=== PATIENT | male | born 1945 | race Caucasian/White ===

== ENCOUNTER 2024-02-29 18:47 | Observation (INO) | payer MEDICARE, OTHER ==
--- NOTE | 2024-02-29 19:36 | ERPHSYRPT ---
- History of Present Illness Time Seen by Provider: 02/29/24 19:33 Source: patient Exam Limitations: no limitations Physician History: Patient is an 78-year-old male with history of hypertension presents to the emergency department for evaluation and treatment of strokelike symptoms. Patient states symptoms started last night with dizziness. However patient did not seek medical attention. Approximately 1 hour prior to arrival patient experienced a disassociation sensation of his left upper extremity per patient. Patient experienced transient weakness. Symptoms lasted several minutes before resolution. Patient no longer feels weak however he is experiencing a mild residual dizziness. No associated chest pain or shortness of breath. No nausea vomiting or diaphoresis. Symptoms when present are moderate in intensity. Patient denies a history of the same. He voices no other complaints or concerns at this time. Portions of this note were created with voice recognition technology. There may be grammatical, spelling, punctuation or sound alike errors Timing/Duration: yesterday Severity: moderate Modifying Factors: Improves With: nothing Associated Symptoms: denies symptoms Allergies/Adverse Reactions: No Known Drug Allergies Allergy (Unverified 02/29/24 19:55) Home Medications: Cephalexin Mh 500 mg [Keflex 500 mg] 1 tab PO QID 02/29/24 [History] Losartan/Hydrochlorothiazide [Losartan-Hctz 100-25 mg Tab] 1 tab PO DAILY 02/29/24 [History] Metoprolol Succinate 50 mg [Toprol Xl 50 MG] 1 tab PO HS 02/29/24 [History] PANTOPRAZOLE 40 mg Tablet [Protonix 40MG Tablet] 1 tab PO DAILY 02/29/24 [History] Pravastatin Sodium 20 mg PO HS 02/29/24 [History] - Review of Systems Constitutional: No Symptoms, No Fever, No Chills Eyes: No Symptoms Ears, Nose, & Throat: No Symptoms Respiratory: No Symptoms, No Cough, No Dyspnea Cardiac: No Symptoms, No Chest Pain, No Edema, No Syncope Abdominal/Gastrointestinal: No Symptoms, No Abdominal Pain, No Nausea, No Vomiting, No Diarrhea Genitourinary Symptoms: No Symptoms, No Dysuria Musculoskeletal: No Symptoms, No Back Pain, No Neck Pain Skin: No Symptoms, No Rash Neurological: No Symptoms, No Dizziness, No Focal Weakness, No Sensory Changes Psychological: No Symptoms Endocrine: No Symptoms Hematologic/Lymphatic: No Symptoms Immunological/Allergic: No Symptoms All Other Systems: Reviewed and Negative - Nursing Vital Signs Nursing Vital Signs: Initial Vital Signs Temperature 98.4 F 02/29/24 19:26 Pulse Rate 58 L 02/29/24 19:26 Respiratory Rate 20 02/29/24 19:26 Blood Pressure 139/57 02/29/24 19:26 O2 Sat by Pulse Oximetry 97 02/29/24 19:26 Pain Scale Pain Intensity 0 - Physical Exam General Appearance: no apparent distress, alert Eye Exam: PERRL/EOMI, eyes nml inspection Ears, Nose, Throat Exam: normal ENT inspection, TMs normal, pharynx normal, moist mucous membranes Neck Exam: normal inspection, non-tender, supple, full range of motion Respiratory Exam: normal breath sounds, lungs clear, airway intact, No respiratory distress Cardiovascular Exam: regular rate/rhythm, normal heart sounds, normal peripheral pulses Gastrointestinal/Abdomen Exam: soft, normal bowel sounds, No tenderness, No mass Back Exam: normal inspection, normal range of motion, No CVA tenderness, No vertebral tenderness Extremity Exam: normal inspection, normal range of motion, pelvis stable Neurologic Exam: alert, oriented x 3, cooperative, normal mood/affect, nml cerebellar function, nml station & gait, sensation nml, other (No focal or later alizing symptoms), No motor deficits Skin Exam: normal color, warm, dry, No rash Lymphatic Exam: No adenopathy SpO2 Interpretation: normal SpO2: 97 O2 Delivery: Room Air - Course Nursing assessment & vital signs reviewed: Yes EKG Interpreted by Me: RATE (57), Sinus Rhythm, NORMAL AXIS, NORMAL INTERVALS - CT Exams Head CT Interpretation: Tele-radiologist Report (No comps. Atrophy. No acute findings) Ordered Tests: Active Orders 24 hr Category Date Time Status Manager Field Services STAT Care 02/29/24 19:32 Active EKG-ER Only STAT Care 02/29/24 19:32 Active IV Insertion STAT Care 02/29/24 19:32 Active Pulse Oximetry (ED) STAT Care 02/29/24 19:32 Active HEAD WITHOUT CONTRAST [CT] Stat Exams 02/29/24 19:31 Taken CBC W DIFF Stat Lab 02/29/24 19:40 Completed CMP Stat Lab 02/29/24 19:40 Completed TROPONIN Q4H Lab 02/29/24 19:40 Completed TROPONIN Q4H Lab 02/29/24 23:45 Ordered TROPONIN Q4H Lab 03/01/24 03:45 Ordered UA W/RFX UR CULTURE Stat Lab 02/29/24 20:16 Completed Transfer Order Routine Transfer 02/29/24 Ordered Medication Summary Generic Name Dose Route Start Last Admin Trade Name Howard PRN Reason Stop Dose Admin Sodium Chloride 1,000 mls @ 75 mls/hr 02/29/24 19:45 02/29/24 19:57 Sodium Chloride 0.9% 1000 Ml IV 03/30/24 19:44 75 mls/hr .[id number] DOLORES Administration Discontinued Medications Generic Name Dose Route Start Last Admin Trade Name Freq PRN Reason Stop Dose Admin Aspirin 324 mg 02/29/24 20:32 02/29/24 20:36 Aspirin 81 Mg Tab.Chew PO 02/29/24 20:33 324 mg STAT ONE Administration Aspirin Confirm 02/29/24 20:35 Aspirin 81 Mg Tab.Chew Administered 02/29/24 20:36 Dose 324 mg .ROUTE .STK-MED ONE Lab/Rad Data: Laboratory Result Diagrams 02/29/24 19:40 02/29/24 19:40 Laboratory Results 02/29/24 02/29/24 02/29/24 Range/Units 20:16 19:40 19:40 WBC (4.23-9.07) x10^3/uL RBC (4.63-6.08) x10^6/uL Hgb (13.7-17.5) g/dL Hct (40.1-51.0) % MCV (79.0-92.2) fL MCH (25.7-32.2) pg MCHC (32.3-36.5) g/dL RDW (11.6-14.4) % Plt Count (163-337) x10^3/uL MPV (9.4-12.4) fL Gran % (34.0-67.9) % Immature Gran % (Auto) (0.001-0.429) % Nucleat RBC Rel Count (0.00-0.2) % Eos # (Auto) (0.04-0.54) x10^3/uL Immature Gran # (Auto) (0.001-0.031) x10^3u/L Absolute Lymphs (auto) (1.32-3.57) x10^3/uL Absolute Monos (auto) (0.30-0.82) x10^3/uL Absolute Nucleated RBC (0.00-0.012) x10^3u/L Lymphocytes % (21.8-53.1) % Monocytes % (5.3-12.2) % Eosinophils % (0.8-7.0) % Basophils % (0.2-1.2) % Absolute Granulocytes (1.78-5.38) x10^3/uL Basophils # (0.01-0.08) x10^3/uL Sodium 145 (135-145) mmol/L Potassium 4.3 (3.5-5.1) mmol/L Chloride 109 H (98-107) mmol/L Carbon Dioxide 27 (22-30) mmol/L Anion Gap 13.5 (5-15) MEQ/L BUN 21 H (9-20) mg/dL Creatinine 1.07 (0.66-1.25) mg/dL Estimated GFR 70.2 ML/MIN Glucose 147 H (74-106) mg/dL Calcium 9.3 (8.4-10.2) mg/dL Total Bilirubin 0.40 (0.2-1.3) mg/dL AST 22 (17-59) U/L ALT 23 (0-50) U/L Alkaline Phosphatase 84 (38-126) U/L Troponin I < 0.012 (0.000-0.033) ng/mL Serum Total Protein 7.7 (6.3-8.2) g/dL Albumin 4.4 (3.5-5.0) g/dL Urine Color Yellow (Yellow) Urine Appearance Clear (Clear) Urine pH 5.5 (4.6-8.0) Ur Specific [place] 1.015 (1.005-1.030) Urine Protein Negative (Negative) Urine Glucose (UA) Negative (Negative) mg/dL Urine Ketones Negative (Negative) Urine Blood Negative (Negative) Urine Nitrite Negative (Negative) Urine Bilirubin Negative (Negative) Urine Urobilinogen 1.0 A (0.2) mg/dL Ur Leukocyte Esterase Negative (Negative) U Hyaline Cast (Auto) NONE SEEN (0-2) /LPF Urine Microscopic RBC 0-2 (0-5) /HPF Urine Microscopic WBC 0-2 (0-5) /HPF Ur Epithelial Cells None Seen (None Seen) /HPF Urine Bacteria None Seen (None Seen) /HPF Urine Culture Reflexed NO (NO) 02/29/24 Range/Units 19:40 WBC 8.7 (4.23-9.07) x10^3/uL RBC 4.77 (4.63-6.08) x10^6/uL Hgb 14.6 (13.7-17.5) g/dL Hct 43.4 (40.1-51.0) % MCV 91.0 (79.0-92.2) fL MCH 30.6 (25.7-32.2) pg MCHC 33.6 (32.3-36.5) g/dL RDW 12.2 (11.6-14.4) % Plt Count 204 (163-337) x10^3/uL MPV 12.3 (9.4-12.4) fL Gran % 54.1 (34.0-67.9) % Immature Gran % (Auto) 0.2 (0.001-0.429) % Nucleat RBC Rel Count 0.0 (0.00-0.2) % Eos # (Auto) 0.29 (0.04-0.54) x10^3/uL Immature Gran # (Auto) 0.02 (0.001-0.031) x10^3u/L Absolute Lymphs (auto) 2.41 (1.32-3.57) x10^3/uL Absolute Monos (auto) 1.20 H (0.30-0.82) x10^3/uL Absolute Nucleated RBC 0.00 (0.00-0.012) x10^3u/L Lymphocytes % 27.7 (21.8-53.1) % Monocytes % 13.8 H (5.3-12.2) % Eosinophils % 3.3 (0.8-7.0) % Basophils % 0.9 (0.2-1.2) % Absolute Granulocytes 4.71 (1.78-5.38) x10^3/uL Basophils # 0.08 (0.01-0.08) x10^3/uL Sodium (135-145) mmol/L Potassium (3.5-5.1) mmol/L Chloride (98-107) mmol/L Carbon Dioxide (22-30) mmol/L Anion Gap (5-15) MEQ/L BUN (9-20) mg/dL Creatinine (0.66-1.25) mg/dL Estimated GFR ML/MIN Glucose (74-106) mg/dL Calcium (8.4-10.2) mg/dL Total Bilirubin (0.2-1.3) mg/dL AST (17-59) U/L ALT (0-50) U/L Alkaline Phosphatase (38-126) U/L Troponin I (0.000-0.033) ng/mL Serum Total Protein (6.3-8.2) g/dL Albumin (3.5-5.0) g/dL Urine Color (Yellow) Urine Appearance (Clear) Urine pH (4.6-8.0) Ur Specific [place] (1.005-1.030) Urine Protein (Negative) Urine Glucose (UA) (Negative) mg/dL Urine Ketones (Negative) Urine Blood (Negative) Urine Nitrite (Negative) Urine Bilirubin (Negative) Urine Urobilinogen (0.2) mg/dL Ur Leukocyte Esterase (Negative) U Hyaline Cast (Auto) (0-2) /LPF Urine Microscopic RBC (0-5) /HPF Urine Microscopic WBC (0-5) /HPF Ur Epithelial Cells (None Seen) /HPF Urine Bacteria (None Seen) /HPF Urine Culture Reflexed (NO) - Progress Progress: improved Progress Note: Case discussed with teleneurologist who advised admission. Spoke to neurologist at [address]. hospitalist [address] Baxter accepts admission at 205702/29/24 21:01 78-year-old male presents to our ED with strokelike symptoms. Symptoms had resolved prior to arrival. Physical exam nonremarkable. No focal or lateralizing symptoms. CT head negative for acute intracranial pathology. Teleneurologist consulted. Admission advised for stroke workup. Hospitalist accepted patient at 2057. Plan of care discussed with patient. Patient agrees to admission [facility] acute hospital for further evaluation and treatment. He voices no other complaints or concerns at this time. Laboratory workup essentially nonremarkable Portions of this note were created with voice recognition technology. There may be grammatical, spelling, punctuation or sound alike errors Complexity problem addressed is moderate acute complicated. No critical care time. Complexity of data reviewed and analyzed is extensive. Test ordered test reviewed results analyzed and correlated clinically with history and physical exam. Risk of complication and or risk of morbidity/mortality patient management is high. Patient requires hospitalization for further evaluation and treatment. Vital stable. Time spent to discharge patient approximately 20 minutes. Plan of care established for shared decision making. No social determinants of health present impede follow-up. Portions of this note were created with voice recognition technology. There may be grammatical, spelling, punctuation or sound alike errors 02/29/24 21:02 02/29/24 21:04 Counseled pt/family regarding: lab results, diagnosis, rad results - Departure Departure Disposition: Observation Clinical Impression: TIA (transient ischemic attack) Condition: Stable Critical Care Time: No Referrals: BRISA FERGUSNO MD [Primary Care Provider] - Follow up/PCP as directed
[2024-02-29 19:46] LABS: Absolute Neutrophil Ct (ANC) 4.71 x10^3/uL (1.78-5.38); BASOPHIL % 0.9 % (0.2-1.2); Basophil (Absolute #) 0.08 x10^3/uL (0.01-0.08); Eosinophil % 3.3 % (0.8-7.0); Eosinophil (Absolute #) 0.29 x10^3/uL (0.04-0.54); Hematocrit 43.4 % (40.1-51.0); Hemoglobin 14.6 g/dL (13.7-17.5); IMMATURE GRAN # 0.02 x10^3u/L (0.001-0.031); IMMATURE GRAN % 0.2 % (0.001-0.429); Lymphocyte (Absolute #) 2.41 x10^3/uL (1.32-3.57); Lymphocytes % 27.7 % (21.8-53.1); Mean Corpuscular Hemoglobin 30.6 pg (25.7-32.2); Mean Corpuscular Hgb Concent. 33.6 g/dL (32.3-36.5); Mean Platelet Volume 12.3 fL (9.4-12.4); Monocytes % 13.8 % (5.3-12.2); Neutrophil % 54.1 % (34.0-67.9); Platelet Count 204 x10^3/uL (163-337); Red Blood Count 4.77 x10^6/uL (4.63-6.08); Red Cell Distribution Width 12.2 % (11.6-14.4); White Blood Count 8.7 x10^3/uL (4.23-9.07)
[2024-02-29] MEDS: Sodium Chloride 0.9% 1000 ML 1,000 ML IV SCH (19:57)
[2024-02-29 20:00] LABS: ALBUMIN 4.4 g/dL (3.5-5.0); ANION GAP 13.5 MEQ/L (5-15); BILIRUBIN,TOTAL 0.4 mg/dL (0.2-1.3); Calcium 9.3 mg/dL (8.4-10.2); Creatinine 1 1.07 mg/dL (0.66-1.25); EST GLOMERULAR FILTRATION RATE 70.2 ML/MIN; Potassium 4.3 mmol/L (3.5-5.1); Total Protein 7.7 g/dL (6.3-8.2)
[2024-02-29 20:34] LABS: Appearance Clear (Clear); Bacteria None Seen /HPF (None Seen); Bilirubin Negative (Negative); Blood Negative (Negative); Epithelial Cells None Seen /HPF (None Seen); Glucose, Urine Negative (Negative); Hyaline Casts NONE SEEN /LPF (0-2); Ketones Negative (Negative); Leukocyte Esterase Negative (Negative); Nitrite Negative (Negative); Ph 5.5 (4.6-8.0); Protein,Urine Dip Negative (Negative); RBC 0-2 /HPF (0-5); Specific Gravity 1.015 (1.005-1.030); WBC 0-2 /HPF (0-5)
[2024-02-29] MEDS ORDERED: BABY ASPIRIN 81 MG CHEW ONE (20:35)
[2024-02-29] MEDS: BABY ASPIRIN 81 MG CHEW PO ONE (20:36)
[2024-02-29 20:37] LABS: ADD URINE CULTURE? NO (NO)
[2024-02-29] MEDS ORDERED: TYLENOL 325 MG PO PRN (21:19)
--- NOTE | 2024-02-29 22:26 | PCM.HP ---
History of Present Illness - Chief Complaint Chief Complaint: left arm didn't belong to me Date: 02/29/24 History of Present Illness: 78 y/o M with h/o HTN, who presents with left arm numbness/dissociation. Patient was in his usual state of health when this afternoon, suddenly felt like "my left arm didn't belong to me". He is uncertain if he truly had numbness, but noted that he could move his arm without difficulty. also noted that the left side of his mouth seemed to be drooping. He denies any other changes in sensation or motor weakness, denies diplopia, vision changes, dysarthria, aphasia, headache. Symptoms lasted about 45 minutes, resolving prior to arriving at the ED, and has not recurred. He has not had similar symptoms in the past. No recent fevers, chills, myalgias, malaise, nausea, diarrhea, chest pain, or dyspnea. He just started Keflex yesterday for a swollen lymph node in his neck. No other recent changes to medication, no recent changes in diet. 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 - Review of Systems Constitutional: No Fever, No Chills, No Lethargy, No Malaise Ears, Nose, & Throat: No Sinus Drainage, No Throat Pain, No Throat Swelling, No Painful Swallowing Respiratory: No Cough, No Short Of Breath Cardiac: No Chest Pain, No Syncope Abdominal/Gastrointestinal: No Abdominal Pain, No Nausea, No Diarrhea Genitourinary Symptoms: No Dysuria, No Frequency Musculoskeletal: Neck Pain, No Back Pain Skin: No Cellulitis, No Rash Neurological: Sensory Changes, No Dizziness, No Focal Weakness, No Headache, No Speech Changes, No Vertigo Psychological: No Memory Loss, No Mood Changes Endocrine: No Polyuria, No Polydipsia Hematologic/Lymphatic: Adenopathy (neck) Medications & Allergies Home Medications: Home Medication List Cephalexin Mh 500 mg [Keflex 500 mg] 1 tab PO QID 02/29/24 [History Confirmed 02/29/24] Losartan/Hydrochlorothiazide [Losartan-Hctz 100-25 mg Tab] 1 tab PO DAILY 02/29/24 [History Confirmed 02/29/24] Metoprolol Succinate 50 mg [Toprol Xl 50 MG] 1 tab PO HS 02/29/24 [History Confirmed 02/29/24] PANTOPRAZOLE 40 mg Tablet [Protonix 40MG Tablet] 1 tab PO DAILY 02/29/24 [History Confirmed 02/29/24] Pravastatin Sodium 20 mg PO HS 02/29/24 [History Confirmed 02/29/24] Allergies/Adverse Reactions: Allergies Allergy/AdvReac Type Severity Reaction Status Date / Time No Known Drug Allergies Allergy Unverified 02/29/24 19:55 - Past Medical History Past Medical History: Yes Neurological History: No Pertinent History ENT History: Glaucoma, Other Cardiac History: High Cholesterol, Hypertension Respiratory History: No Pertinent History Endocrine Medical History: No Pertinent History Musculoskelatal History: No Pertinent History GI Medical History: GERD History: No Pertinent History Pyscho-Social History: No Pertinent History Male Reproductive Disorders: No Pertinent History Comment: eye membrane overgrowth/retinal detachment, 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 - Past Surgical History Past Surgical History: Yes Neuro Surgical History: No Pertinent History Cardiac History: No Pertinent History Respiratory Surgery: No Pertinent History GI Surgical History: No Pertinent History Genitourinary Surgical Hx: No Pertinent History Musculskeletal Surgical Hx: Orthopedic Surgery Male Surgical History: Vasectomy Other Surgical History: left knee surgery Significant Family History: stroke (father with CVA at age 72) - Social History Smoking Status: Former smoker (pipe, quit over 30 years ago) Exposure to second hand smoke: No Alcohol: Occasionally Drug Use: none - Social Determinants of Health Will the patient participate in the screening: Yes Do you worry about a steady place to live?: No Do you have any problems with any of the following?: No known problems In the past 12 months,have you had to go without utilities?: No Have you or anyone in your house had to go without enough: No Transportation Issues: No Has anyone in your support network made you feel unsafe?: No - Physical Exam Vital Signs: Vital Signs - 24 hr Temp Pulse Resp BP BP Pulse Ox 02/29/24 21:04 97 02/29/24 21:01 61 16 135/58 97 02/29/24 20:30 55 L 14 156/62 98 02/29/24 20:00 56 L 18 140/59 98 02/29/24 19:32 98 02/29/24 19:31 59 L 24 138/66 02/29/24 19:26 98.4 F 58 L 20 139/57 97 General Appearance: no apparent distress Neurologic Exam: alert, oriented x 3, 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, No motor deficits (intact gross arm/leg strength), No facial droop, No aphasia, No dysarthria, No abnormal cerebellar tests Eye Exam: PERRL/EOMI Respiratory Exam: normal breath sounds, lungs clear, No accessory muscle use Cardiovascular Exam: normal heart sounds, No murmur, No edema Gastrointestinal/Abdomen Exam: No distention Results - Labs Lab/Micro Results: Lab Results-Last 24 Hours 02/29/24 02/29/24 02/29/24 Range/Units 19:40 19:40 19:40 WBC 8.7 (4.23-9.07) x10^3/uL RBC 4.77 (4.63-6.08) x10^6/uL Hgb 14.6 (13.7-17.5) g/dL Hct 43.4 (40.1-51.0) % MCV 91.0 (79.0-92.2) fL MCH 30.6 (25.7-32.2) pg MCHC 33.6 (32.3-36.5) g/dL RDW 12.2 (11.6-14.4) % Plt Count 204 (163-337) x10^3/uL MPV 12.3 (9.4-12.4) fL Gran % 54.1 (34.0-67.9) % Immature Gran % (Auto) 0.2 (0.001-0.429) % Nucleat RBC Rel Count 0.0 (0.00-0.2) % Eos # (Auto) 0.29 (0.04-0.54) x10^3/uL Immature Gran # (Auto) 0.02 (0.001-0.031) x10^3u/L Absolute Lymphs (auto) 2.41 (1.32-3.57) x10^3/uL Absolute Monos (auto) 1.20 H (0.30-0.82) x10^3/uL Absolute Nucleated RBC 0.00 (0.00-0.012) x10^3u/L Lymphocytes % 27.7 (21.8-53.1) % Monocytes % 13.8 H (5.3-12.2) % Eosinophils % 3.3 (0.8-7.0) % Basophils % 0.9 (0.2-1.2) % Absolute Granulocytes 4.71 (1.78-5.38) x10^3/uL Basophils # 0.08 (0.01-0.08) x10^3/uL Sodium 145 (135-145) mmol/L Potassium 4.3 (3.5-5.1) mmol/L Chloride 109 H (98-107) mmol/L Carbon Dioxide 27 (22-30) mmol/L Anion Gap 13.5 (5-15) MEQ/L BUN 21 H (9-20) mg/dL Creatinine 1.07 (0.66-1.25) mg/dL Estimated GFR 70.2 ML/MIN Glucose 147 H (74-106) mg/dL Calcium 9.3 (8.4-10.2) mg/dL Total Bilirubin 0.40 (0.2-1.3) mg/dL AST 22 (17-59) U/L ALT 23 (0-50) U/L Alkaline Phosphatase 84 (38-126) U/L Troponin I < 0.012 (0.000-0.033) ng/mL Serum Total Protein 7.7 (6.3-8.2) g/dL Albumin 4.4 (3.5-5.0) g/dL Urine Color (Yellow) Urine Appearance (Clear) Urine pH (4.6-8.0) Ur Specific [place] (1.005-1.030) Urine Protein (Negative) Urine Glucose (UA) (Negative) mg/dL Urine Ketones (Negative) Urine Blood (Negative) Urine Nitrite (Negative) Urine Bilirubin (Negative) Urine Urobilinogen (0.2) mg/dL Ur Leukocyte Esterase (Negative) U Hyaline Cast (Auto) (0-2) /LPF Urine Microscopic RBC (0-5) /HPF Urine Microscopic WBC (0-5) /HPF Ur Epithelial Cells (None Seen) /HPF Urine Bacteria (None Seen) /HPF Urine Culture Reflexed (NO) 02/29/24 Range/Units 20:16 WBC (4.23-9.07) x10^3/uL RBC (4.63-6.08) x10^6/uL Hgb (13.7-17.5) g/dL Hct (40.1-51.0) % MCV (79.0-92.2) fL MCH (25.7-32.2) pg MCHC (32.3-36.5) g/dL RDW (11.6-14.4) % Plt Count (163-337) x10^3/uL MPV (9.4-12.4) fL Gran % (34.0-67.9) % Immature Gran % (Auto) (0.001-0.429) % Nucleat RBC Rel Count (0.00-0.2) % Eos # (Auto) (0.04-0.54) x10^3/uL Immature Gran # (Auto) (0.001-0.031) x10^3u/L Absolute Lymphs (auto) (1.32-3.57) x10^3/uL Absolute Monos (auto) (0.30-0.82) x10^3/uL Absolute Nucleated RBC (0.00-0.012) x10^3u/L Lymphocytes % (21.8-53.1) % Monocytes % (5.3-12.2) % Eosinophils % (0.8-7.0) % Basophils % (0.2-1.2) % Absolute Granulocytes (1.78-5.38) x10^3/uL Basophils # (0.01-0.08) x10^3/uL Sodium (135-145) mmol/L Potassium (3.5-5.1) mmol/L Chloride (98-107) mmol/L Carbon Dioxide (22-30) mmol/L Anion Gap (5-15) MEQ/L BUN (9-20) mg/dL Creatinine (0.66-1.25) mg/dL Estimated GFR ML/MIN Glucose (74-106) mg/dL Calcium (8.4-10.2) mg/dL Total Bilirubin (0.2-1.3) mg/dL AST (17-59) U/L ALT (0-50) U/L Alkaline Phosphatase (38-126) U/L Troponin I (0.000-0.033) ng/mL Serum Total Protein (6.3-8.2) g/dL Albumin (3.5-5.0) g/dL Urine Color Yellow (Yellow) Urine Appearance Clear (Clear) Urine pH 5.5 (4.6-8.0) Ur Specific [place] 1.015 (1.005-1.030) Urine Protein Negative (Negative) Urine Glucose (UA) Negative (Negative) mg/dL Urine Ketones Negative (Negative) Urine Blood Negative (Negative) Urine Nitrite Negative (Negative) Urine Bilirubin Negative (Negative) Urine Urobilinogen 1.0 A (0.2) mg/dL Ur Leukocyte Esterase Negative (Negative) U Hyaline Cast (Auto) NONE SEEN (0-2) /LPF Urine Microscopic RBC 0-2 (0-5) /HPF Urine Microscopic WBC 0-2 (0-5) /HPF Ur Epithelial Cells None Seen (None Seen) /HPF Urine Bacteria None Seen (None Seen) /HPF Urine Culture Reflexed NO (NO) - Radiology Impressions Radiology Exams & Impressions: Radiology Procedures Category Date Time Status ECHO W/2D AND DOPPLER [US] Routine Exams 02/29/24 21:19 Ordered HEAD WITHOUT CONTRAST [CT] Stat Exams 02/29/24 19:31 Taken MRA BRAIN WITHOUT CONTRAST [MRI] Routine Exams 02/29/24 21:19 Ordered MRA NECK WITHOUT CONTRAST [MRI] Routine Exams 02/29/24 21:19 Ordered MRI BRAIN W/O CONTRAST [MRI] Routine Exams 02/29/24 21:[address] Head - per verbal report from ED physician, no acute changes Assessment/Plan (1) TIA (transient ischemic attack) Current Visit: Yes Status: Acute Assessment & Plan: 78 y/o M with h/o HTN, here with TIA. ## TIA - with transient left arm sensory changes, possibly a slight motor facial change. Symptoms resolved spontaneously in <1 hr. NIHSS 0 now. Seen by tele- neurology, recommended TIA workup. No other triggers, except possibly with this recent neck lymph node infection. No other obvious risk factors. - monitor on telemetry to evaluate for A-fib as cause - check MRI brain for evidence of stroke - check MRA head/neck to evaluate macrovascular obstructions - check TSH, lipid panel, HbA1c - echo to eval for cardioembolic source - continue home pravachol - give ASA 81 in ED ## Neck infection - currently on day 2 of 10 of course of Keflex as outpatient. Appears to be improving, no swelling noted today. - continue Keflex QID ## Hypertension - BP well-controlled currently. No need to adjust for permissive hypertension. - continue losartan-HCTZ 100/25 daily, Toprol XL 50 qHS ## GERD - controlled today - continue protonix Code status: Full code Prophylaxis: ambulatory, low DVT risk (Mcdonald score 1, IMPROVE 1) Diet: Regular Code(s): G45.9 - TRANSIENT CEREBRAL ISCHEMIC ATTACK, UNSPECIFIED Telemedicine Encounter - Telemedicine Encounter Telemedicine Encounter: The entirety of this encounter was performed via Telemedicine"
[2024-02-29] MEDS ORDERED: Toprol Xl 50 MG PO SCH (22:30)
[2024-02-29] MEDS ORDERED: Toprol Xl 50 MG PO ONE (23:33)
[2024-02-29] MEDS: Toprol Xl 50 MG PO SCH (23:38)
[2024-02-29] MEDS: NON-FORMULARY ITEM (Pravastatin Sodium [Pravastatin Sodium] 20 MG Tablet) PO SCH (23:40)
[2024-03-01 03:46] LABS: Hematocrit 39.8 % (40.1-51.0); Hemoglobin 13.3 g/dL (13.7-17.5); Mean Cell Volume 91.5 fL (79.0-92.2); Mean Corpuscular Hemoglobin 30.6 pg (25.7-32.2); Mean Corpuscular Hgb Concent. 33.4 g/dL (32.3-36.5); Platelet Count 185 x10^3/uL (163-337); Red Blood Count 4.35 x10^6/uL (4.63-6.08); Red Cell Distribution Width 12.1 % (11.6-14.4); White Blood Count 8.3 x10^3/uL (4.23-9.07)
[2024-03-01 04:53] LABS: ANION GAP 11.4 MEQ/L (5-15); Calcium 8.8 mg/dL (8.4-10.2); Creatinine 1 1.02 mg/dL (0.66-1.25); EST GLOMERULAR FILTRATION RATE 74.3 ML/MIN; Potassium 3.7 mmol/L (3.5-5.1); TSH, 3RD Generation 2.277 mIU/L (0.470-4.680)
--- NOTE | 2024-03-01 05:11 | PCM.NOTE ---
Date and Time: 03/01/24 0503 Subjective Assessment: MR. Vickers is an 78 year old male with a pmhx of HTN admitted 02/29/24 with a TIA after experiencing stroke-like symptom of left arm numbness/disassociation. Symptoms resolved spontaneously in <1 hr. NIHSS 0 now. Seen by tele-neurology, recommended TIA workup. No other triggers, except possibly with this recent neck lymph node infection. No other obvious risk factors. Plan for MRI brain, MRA H/N today per neurololgy recommendations and Echo. CT head per radiology read is negative. Neuro read per documentation with small lacunar infarction, age indeterminant in the right frontal region. 03/01/24: Met with patient bedside. A&O x 4. Speech is clear with symmetrical facial expression. BUE/BLE strength 5/5 - equal. Sensation intact. No further episodes of left arm numbness/disassociation since prior to arrival. He denies headache, double vision, facial/extremity numbness/tingling, or any new symptoms. Neurology note reviewed - discussed plan for MRI Brain, MRI H/N, and echo today which patient is agreeable. Will start ASA and Atorvastatin per neuro recs. Denies fever,cough, sob, cp, abdominal pain, UGERRERO, dizziness, N/V/D. - Review of Systems Constitutional: No Fever, No Chills Eyes: No Symptoms Ears, Nose, & Throat: No Symptoms Respiratory: No Cough, No Short Of Breath Cardiac: No Chest Pain, No Edema, No Syncope Abdominal/Gastrointestinal: No Abdominal Pain, No Nausea, No Vomiting, No Diarrhea Genitourinary Symptoms: No Dysuria Musculoskeletal: No Back Pain, No Neck Pain Skin: No Rash Neurological: No Dizziness, No Focal Weakness, No Sensory Changes Psychological: No Symptoms Endocrine: No Symptoms Hematologic/Lymphatic: No Symptoms Immunological/Allergic: No Symptoms Objective Exam General Appearance: no apparent distress Neurologic Exam: alert, oriented x 3, cooperative, 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, normal mood/affect, nml station & gait, sensation nml, No motor deficits, No sensory deficit Skin Exam: normal color Eye Exam: PERRL Ears, Nose, Throat Exam: normal ENT inspection Neck Exam: normal inspection Respiratory Exam: normal breath sounds, lungs clear Cardiovascular Exam: regular rate/rhythm, normal heart sounds Gastrointestinal/Abdomen Exam: soft, normal bowel sounds Extremity Exam: normal inspection Back Exam: normal inspection Male Genitalia Exam: deferred Rectal Exam: deferred Objective Data Vital Signs: Vital Signs - 24 hr Temp Pulse Resp BP BP Pulse Ox 03/01/24 04:00 97.9 F 49 L 16 131/60 96 03/01/24 00:00 98.2 F 51 L 19 144/61 98 02/29/24 22:20 98.4 F 52 L 18 152/67 95 02/29/24 21:04 97 02/29/24 21:01 61 16 135/58 97 02/29/24 20:30 55 L 14 156/62 98 02/29/24 20:00 56 L 18 140/59 98 02/29/24 19:32 98 02/29/24 19:31 59 L 24 138/66 02/29/24 19:26 98.4 F 58 L 20 139/57 97 Pain Assessment - Last Documented Pain Intensity 0 Intake and Output: Intake & Output 02/27/24 02/28/24 02/29/24 03/01/24 11:59 11:59 11:59 11:59 Intake Total 866 Balance 866 Weight 87.1 kg Lab Results: Lab Results-Last 24 Hours 02/29/24 02/29/24 02/29/24 Range/Units 19:40 19:40 19:40 WBC 8.7 (4.23-9.07) x10^3/uL RBC 4.77 (4.63-6.08) x10^6/uL Hgb 14.6 (13.7-17.5) g/dL Hct 43.4 (40.1-51.0) % MCV 91.0 (79.0-92.2) fL MCH 30.6 (25.7-32.2) pg MCHC 33.6 (32.3-36.5) g/dL RDW 12.2 (11.6-14.4) % Plt Count 204 (163-337) x10^3/uL MPV 12.3 (9.4-12.4) fL Gran % 54.1 (34.0-67.9) % Immature Gran % (Auto) 0.2 (0.001-0.429) % Nucleat RBC Rel Count 0.0 (0.00-0.2) % Eos # (Auto) 0.29 (0.04-0.54) x10^3/uL Immature Gran # (Auto) 0.02 (0.001-0.031) x10^3u/L Absolute Lymphs (auto) 2.41 (1.32-3.57) x10^3/uL Absolute Monos (auto) 1.20 H (0.30-0.82) x10^3/uL Absolute Nucleated RBC 0.00 (0.00-0.012) x10^3u/L Lymphocytes % 27.7 (21.8-53.1) % Monocytes % 13.8 H (5.3-12.2) % Eosinophils % 3.3 (0.8-7.0) % Basophils % 0.9 (0.2-1.2) % Absolute Granulocytes 4.71 (1.78-5.38) x10^3/uL Basophils # 0.08 (0.01-0.08) x10^3/uL Sodium 145 (135-145) mmol/L Potassium 4.3 (3.5-5.1) mmol/L Chloride 109 H (98-107) mmol/L Carbon Dioxide 27 (22-30) mmol/L Anion Gap 13.5 (5-15) MEQ/L BUN 21 H (9-20) mg/dL Creatinine 1.07 (0.66-1.25) mg/dL Estimated GFR 70.2 ML/MIN Glucose 147 H (74-106) mg/dL Hemoglobin A1c (4.5-6.0) % Calcium 9.3 (8.4-10.2) mg/dL Total Bilirubin 0.40 (0.2-1.3) mg/dL AST 22 (17-59) U/L ALT 23 (0-50) U/L Alkaline Phosphatase 84 (38-126) U/L Troponin I < 0.012 (0.000-0.033) ng/mL Serum Total Protein 7.7 (6.3-8.2) g/dL Albumin 4.4 (3.5-5.0) g/dL Triglycerides (30-150) mg/dL Cholesterol (50-200) mg/dL LDL Cholesterol (30-100) mg/dL HDL Cholesterol (40-60) mg/dL Heart Disease Risk Ratio TSH 3rd Generation (0.470-4.680) mIU/L Urine Color (Yellow) Urine Appearance (Clear) Urine pH (4.6-8.0) Ur Specific [place] (1.005-1.030) Urine Protein (Negative) Urine Glucose (UA) (Negative) mg/dL Urine Ketones (Negative) Urine Blood (Negative) Urine Nitrite (Negative) Urine Bilirubin (Negative) Urine Urobilinogen (0.2) mg/dL Ur Leukocyte Esterase (Negative) U Hyaline Cast (Auto) (0-2) /LPF Urine Microscopic RBC (0-5) /HPF Urine Microscopic WBC (0-5) /HPF Ur Epithelial Cells (None Seen) /HPF Urine Bacteria (None Seen) /HPF Urine Culture Reflexed (NO) 02/29/24 02/29/24 03/01/24 Range/Units 20:16 23:39 03:44 WBC (4.23-9.07) x10^3/uL RBC (4.63-6.08) x10^6/uL Hgb (13.7-17.5) g/dL Hct (40.1-51.0) % MCV (79.0-92.2) fL MCH (25.7-32.2) pg MCHC (32.3-36.5) g/dL RDW (11.6-14.4) % Plt Count (163-337) x10^3/uL MPV (9.4-12.4) fL Gran % (34.0-67.9) % Immature Gran % (Auto) (0.001-0.429) % Nucleat RBC Rel Count (0.00-0.2) % Eos # (Auto) (0.04-0.54) x10^3/uL Immature Gran # (Auto) (0.001-0.031) x10^3u/L Absolute Lymphs (auto) (1.32-3.57) x10^3/uL Absolute Monos (auto) (0.30-0.82) x10^3/uL Absolute Nucleated RBC (0.00-0.012) x10^3u/L Lymphocytes % (21.8-53.1) % Monocytes % (5.3-12.2) % Eosinophils % (0.8-7.0) % Basophils % (0.2-1.2) % Absolute Granulocytes (1.78-5.38) x10^3/uL Basophils # (0.01-0.08) x10^3/uL Sodium (135-145) mmol/L Potassium (3.5-5.1) mmol/L Chloride (98-107) mmol/L Carbon Dioxide (22-30) mmol/L Anion Gap (5-15) MEQ/L BUN (9-20) mg/dL Creatinine (0.66-1.25) mg/dL Estimated GFR ML/MIN Glucose (74-106) mg/dL Hemoglobin A1c (4.5-6.0) % Calcium (8.4-10.2) mg/dL Total Bilirubin (0.2-1.3) mg/dL AST (17-59) U/L ALT (0-50) U/L Alkaline Phosphatase (38-126) U/L Troponin I < 0.012 < 0.012 (0.000-0.033) ng/mL Serum Total Protein (6.3-8.2) g/dL Albumin (3.5-5.0) g/dL Triglycerides (30-150) mg/dL Cholesterol (50-200) mg/dL LDL Cholesterol (30-100) mg/dL HDL Cholesterol (40-60) mg/dL Heart Disease Risk Ratio TSH 3rd Generation (0.470-4.680) mIU/L Urine Color Yellow (Yellow) Urine Appearance Clear (Clear) Urine pH 5.5 (4.6-8.0) Ur Specific [place] 1.015 (1.005-1.030) Urine Protein Negative (Negative) Urine Glucose (UA) Negative (Negative) mg/dL Urine Ketones Negative (Negative) Urine Blood Negative (Negative) Urine Nitrite Negative (Negative) Urine Bilirubin Negative (Negative) Urine Urobilinogen 1.0 A (0.2) mg/dL Ur Leukocyte Esterase Negative (Negative) U Hyaline Cast (Auto) NONE SEEN (0-2) /LPF Urine Microscopic RBC 0-2 (0-5) /HPF Urine Microscopic WBC 0-2 (0-5) /HPF Ur Epithelial Cells None Seen (None Seen) /HPF Urine Bacteria None Seen (None Seen) /HPF Urine Culture Reflexed NO (NO) 03/01/24 03/01/24 03/01/24 Range/Units 03:44 03:44 03:44 WBC 8.3 (4.23-9.07) x10^3/uL RBC 4.35 L (4.63-6.08) x10^6/uL Hgb 13.3 L (13.7-17.5) g/dL Hct 39.8 L (40.1-51.0) % MCV 91.5 (79.0-92.2) fL MCH 30.6 (25.7-32.2) pg MCHC 33.4 (32.3-36.5) g/dL RDW 12.1 (11.6-14.4) % Plt Count 185 (163-337) x10^3/uL MPV 12.0 (9.4-12.4) fL Gran % (34.0-67.9) % Immature Gran % (Auto) (0.001-0.429) % Nucleat RBC Rel Count (0.00-0.2) % Eos # (Auto) (0.04-0.54) x10^3/uL Immature Gran # (Auto) (0.001-0.031) x10^3u/L Absolute Lymphs (auto) (1.32-3.57) x10^3/uL Absolute Monos (auto) (0.30-0.82) x10^3/uL Absolute Nucleated RBC (0.00-0.012) x10^3u/L Lymphocytes % (21.8-53.1) % Monocytes % (5.3-12.2) % Eosinophils % (0.8-7.0) % Basophils % (0.2-1.2) % Absolute Granulocytes (1.78-5.38) x10^3/uL Basophils # (0.01-0.08) x10^3/uL Sodium 143 (135-145) mmol/L Potassium 3.7 (3.5-5.1) mmol/L Chloride 111 H (98-107) mmol/L Carbon Dioxide 25 (22-30) mmol/L Anion Gap 11.4 (5-15) MEQ/L BUN 19 (9-20) mg/dL Creatinine 1.02 (0.66-1.25) mg/dL Estimated GFR 74.3 ML/MIN Glucose 98 (74-106) mg/dL Hemoglobin A1c 5.73 (4.5-6.0) % Calcium 8.8 (8.4-10.2) mg/dL Total Bilirubin (0.2-1.3) mg/dL AST (17-59) U/L ALT (0-50) U/L Alkaline Phosphatase (38-126) U/L Troponin I (0.000-0.033) ng/mL Serum Total Protein (6.3-8.2) g/dL Albumin (3.5-5.0) g/dL Triglycerides 172 H (30-150) mg/dL Cholesterol 112 (50-200) mg/dL LDL Cholesterol 76 (30-100) mg/dL HDL Cholesterol 31 L (40-60) mg/dL Heart Disease Risk Ratio 4.0 TSH 3rd Generation 2.277 (0.470-4.680) mIU/L Urine Color (Yellow) Urine Appearance (Clear) Urine pH (4.6-8.0) Ur Specific [place] (1.005-1.030) Urine Protein (Negative) Urine Glucose (UA) (Negative) mg/dL Urine Ketones (Negative) Urine Blood (Negative) Urine Nitrite (Negative) Urine Bilirubin (Negative) Urine Urobilinogen (0.2) mg/dL Ur Leukocyte Esterase (Negative) U Hyaline Cast (Auto) (0-2) /LPF Urine Microscopic RBC (0-5) /HPF Urine Microscopic WBC (0-5) /HPF Ur Epithelial Cells (None Seen) /HPF Urine Bacteria (None Seen) /HPF Urine Culture Reflexed (NO) Radiology Exams: Radiology Procedures Category Date Time Status ECHO W/2D AND DOPPLER [US] Routine Exams 02/29/24 21:19 Ordered HEAD WITHOUT CONTRAST [CT] Stat Exams 02/29/24 19:31 Taken MRA BRAIN WITHOUT CONTRAST [MRI] Routine Exams 02/29/24 21:19 Ordered MRA NECK WITHOUT CONTRAST [MRI] Routine Exams 02/29/24 21:19 Ordered MRI BRAIN W/O CONTRAST [MRI] Routine Exams 02/29/24 21:19 Ordered Assessment/Plan (1) TIA (transient ischemic attack) Current Visit: Yes Status: Acute Assessment & Plan: -Neurology consulted, agree with plan for MRI/MRA/Echo, will reconsult if any abnormalities -TSH/LIpid performed -triglycerides elevated at 172, HDL at 31 -Atorvastatin 80mg initiated per neuro recs -ASA started per neuro recs Code(s): G45.9 - TRANSIENT CEREBRAL ISCHEMIC ATTACK, UNSPECIFIED (2) HTN (hypertension) Current Visit: Yes Status: Acute Assessment & Plan: -stable continue home meds Code(s): I10 - ESSENTIAL (PRIMARY) HYPERTENSION (3) Neck infection Current Visit: Yes Status: Acute Assessment & Plan: currently on day 2 of 10 of course of Keflex as outpatient for a swollen lymph node in his neck. Appears to be improving, no swelling noted today. - continue Keflex QID Code(s): L08.9 - LOCAL INFECTION OF THE SKIN AND SUBCUTANEOUS TISSUE, UNSP (4) GERD (gastroesophageal reflux disease) Current Visit: Yes Status: Acute Assessment & Plan: -continue protonix Code status: full Diet : regular Dispo 1-2 days Code(s): K21.9 - GASTRO-ESOPHAGEAL REFLUX DISEASE WITHOUT ESOPHAGITIS
--- NOTE | 2024-03-01 08:36 | XRAY ---
Indication: Extremity weakness now resolved. Multiple contiguous axial images obtained through the head without contrast. Comparison: None Age-appropriate global atrophy. No acute intracranial hemorrhage, abnormal extra-axial fluid collection, or mass effect. Fourth ventricle is midline without hydrocephalus. Crowell-white matter differentiation preserved. Bony calvarium intact. Visualized paranasal sinuses and mastoid air cells are clear. Impression: Negative CT head without contrast exam.
[2024-03-01] MEDS: KEFLEX 500 MG PO SCH (09:05)
[2024-03-01] MEDS: Cozaar 50 MG PO SCH (09:05)
[2024-03-01] MEDS: Protonix 40MG Tablet PO SCH (09:05)
[2024-03-01] MEDS: ECOTRIN 81 MG PO SCH (09:05)
[2024-03-01] MEDS: hydroDIURIL 25 MG PO SCH (09:05)
[2024-03-01] MEDS: LIPITOR 40MG PO SCH (09:06)
[2024-03-01] MEDS ORDERED: NON-FORMULARY ITEM (Losartan/Hydrochlorothiazide [Losartan-Hctz 100-25 Mg Tab] 1 EACH Tabl PO SCH (10:00)
--- NOTE | 2024-03-01 13:35 | XRAY ---
Indication: TIA. Left hand weakness. Normal CT head without contrast exam. Multi slab 3-D [id number] MRA [place] performed. Comparison: None Distal internal carotid arteries are bilaterally symmetric without critical stenosis or obstruction. Normal carotid terminus with normal branching A1 and M1 segments bilaterally. Posterior circulation demonstrates normal MRA appearance to distal left/right vertebral, basilar, left/right posterior cerebral, and left/right superior cerebellar arteries. Impression: Negative MRA [place].
--- NOTE | 2024-03-01 13:59 | XRAY ---
Indication: TIA. Left hand weakness. Normal CT head without contrast exam. Sagittal, coronal, and axial MRI brain performed without contrast using T1, T2, FLAIR, diffusion, and ADC sequences. Comparison: None Age-appropriate global atrophy. No acute intracranial hemorrhage, abnormal extra-axial fluid collection, or mass effect. Diffusion images are negative for restricted signal. Fourth ventricle is midline without hydrocephalus. 7/8 cranial nerve complex bilaterally symmetric. Normal flow void signal within the major intracerebral circulation. Normal appearing craniocervical junction and sella turcica. Paranasal sinuses are clear. Impression: Negative MRI brain without contrast exam.
--- NOTE | 2024-03-01 14:09 | XRAY ---
Indication: TIA. Left hand weakness. Normal CT head without contrast exam. Multi-slab 3-D [id number] MRA neck performed. Comparison: None Study slightly degraded by motion artifact. Visualized common carotid, carotid bulb, internal carotid, external carotid, and vertebral arteries are normal in MRA appearance bilaterally. Impression: Mild motion artifact. Grossly negative MRA neck exam.
--- NOTE | 2024-03-01 15:46 | PCM.CONS ---
History of Present Illness - Neuro Consultation Date of Consultation Date: 03/01/24 ED Arrival Date & Time: 02/29/24 18:47 Providers: Attending Provider: KATHY DEGROOT MD ED Provider: KATHERINE GARRISON Consulting Provider: CAYLA VICK MD Reason for Consult: acute stroke cc:: The requesting physician will be sent a copy of the consult. - Chief Complaint Patient Subjective Stated Complaint: left arm numbness and dropping things - History of Present Illness HPI: Teleneurology Attestation & Consent: As the provider for this telehealth consult requested by the patients primary attending physician, I attest that I introduced myself to the patient, provided my credentials, disclosed my location, and determined that, based on a review of the patients chart and discussion with the patients primary team, telemedicine via a real-time, two- way, interactive audio and video platform is an appropriate and effective means of providing this service. The patient and I mutually agree that this visit is appropriate for telemedicine. The patient has consented to this telemedicine visit. Last known normal: 1815h on 02/29/24 Time of stroke alert: 1356h on 03/01/24 Time stroke alert page returned: 1401h 03/01/24 Was the patient seen on camera?: yes 78M with h/o retinal detachment of right eye presents with acute onset of LUE numbness and dropping things concerning for acute stroke. Patient suddenly felt like his LUE did not belong to him. He denies slurred speech but said he dropped things from his left hand. CTH was negative for acute process. Patient was admitted for stroke evaluation and treatment. In the ED symptoms were rapidly resolving and patient was not given TNK. Todya he reports resolution of his symptoms. Review of Systems - Review of Systems Review of Systems (Narrative): Pertinent positive and negative findings as per HPI. All other systems negative. REVIEW OF SYSTEMS Constitutional: Denies fevers, chills, weight loss ENT: Denies tinnitus Ophthalmology: Denies diplopia, blurred vision, vision loss Respiratory: Denies SOB, cough Cardiovascular: Denies chest pains, palpitations GI: Denies nausea, vomiting : Denies hematuria Hematology: Denies excessive bleeding Musculoskeletal: Denies back pain, neck pain, joint pain Neurology: Denies headache, altered mentation Mental Health: Denies anxiety Dermatology: Denies rash - Past Medical History Past Medical History: Yes Neurological History: No Pertinent History ENT History: Glaucoma, Other Cardiac History: High Cholesterol, Hypertension Respiratory History: No Pertinent History Endocrine Medical History: No Pertinent History Musculoskelatal History: No Pertinent History GI Medical History: GERD History: No Pertinent History Pyscho-Social History: No Pertinent History Male Reproductive Disorders: No Pertinent History Comment: eye membrane overgrowth/retinal detachment, 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 - Past Surgical History Past Surgical History: Yes Neuro Surgical History: No Pertinent History Cardiac History: No Pertinent History Respiratory Surgery: No Pertinent History GI Surgical History: No Pertinent History Genitourinary Surgical Hx: No Pertinent History Musculskeletal Surgical Hx: Orthopedic Surgery Male Surgical History: Vasectomy Other Surgical History: left knee surgery Significant Family History: stroke (father with CVA at age 72) - Social History Smoking Status: Former smoker (pipe, quit over 30 years ago) Exposure to second hand smoke: No Alcohol: Occasionally Drug Use: none - Social Determinants of Health Will the patient participate in the screening: Yes Do you worry about a steady place to live?: No Do you have any problems with any of the following?: No known problems In the past 12 months,have you had to go without utilities?: No Have you or anyone in your house had to go without enough: No Transportation Issues: No Has anyone in your support network made you feel unsafe?: No Does the patient want assistance with any of the above?: No Physical Exam - Vital Signs Vital Signs: Vital Signs - 24 hr 02/29/24 02/29/24 02/29/24 19:26 19:31 19:32 Temperature 98.4 F Pulse Rate 58 L 59 L Respiratory 20 24 Rate Blood Pressure 138/66 Blood Pressure 139/57 [Right Arm] O2 Sat by Pulse 97 98 Oximetry 02/29/24 02/29/24 02/29/24 20:00 20:30 21:01 Temperature Pulse Rate 56 L 55 L 61 Respiratory 18 14 16 Rate Blood Pressure 140/59 156/62 135/58 Blood Pressure [Right Arm] O2 Sat by Pulse 98 98 97 Oximetry 02/29/24 02/29/24 03/01/24 21:04 22:20 00:00 Temperature 98.4 F 98.2 F Pulse Rate 52 L 51 L Respiratory 18 19 Rate Blood Pressure Blood Pressure 152/67 144/61 [Right Arm] O2 Sat by Pulse 97 95 98 Oximetry 03/01/24 03/01/24 03/01/24 04:00 06:45 12:00 Temperature 97.9 F 97.7 F 98.2 F Pulse Rate 49 L 48 L 45 L Respiratory 16 17 17 Rate Blood Pressure Blood Pressure 131/60 112/59 131/60 [Right Arm] O2 Sat by Pulse 96 98 96 Oximetry - Physical Exam Tele-Neuro Physical Exam (Narrative): Vitals: Gen: Well developed, well nourished. No acute distress. MS: Awake and oriented. Alert. Fund of knowledge, memory, and language at baseline. CV: Regular rate. No edema. hospice executive director: [place], EOMI. +blink. Unable to visualize fundi. Sensation intact. Face is symmetric. Hearing intact. Trapezii strong. Tongue midline. Motor: Antigravity in all 4 extremities. Normal tone and bulk. Sens: Intact to light touch in all 4 extremities. MSR: Unable to assess through telemedicine, no clonus noted. Mvmt: No tremors noted. ISABELLA/FTN intact. Gait: Deferred. NIHSS Time ( 14:36h on 03/01/24) Mental status (0-3): 0 Month/age (0-2): 0 Commands (0-2): 0 Best Gaze (0-2): 0 Visual Pack (0-3):0 Facial weakness (0-3): 0 LUE (0-4): 0 RUE (0-4): 0 LLE (0-4): 0 RLE (0-4): 0 Ataxia (0-2): 0 Sensation (0-2): 0 Aphasia (0-3): 0 Dysarthria (0-2): 0 Extinction (0-2): 0 NIHSS Total: 0 - NIHSS Stroke Scale Date Completed: 03/01/24 Time Stroke Scale Completed: 08:00 Results - Labs Lab/Micro Results: Lab Results-Last 24 Hours 02/29/24 02/29/24 02/29/24 Range/Units 19:40 19:40 19:40 WBC 8.7 (4.23-9.07) x10^3/uL RBC 4.77 (4.63-6.08) x10^6/uL Hgb 14.6 (13.7-17.5) g/dL Hct 43.4 (40.1-51.0) % MCV 91.0 (79.0-92.2) fL MCH 30.6 (25.7-32.2) pg MCHC 33.6 (32.3-36.5) g/dL RDW 12.2 (11.6-14.4) % Plt Count 204 (163-337) x10^3/uL MPV 12.3 (9.4-12.4) fL Gran % 54.1 (34.0-67.9) % Immature Gran % (Auto) 0.2 (0.001-0.429) % Nucleat RBC Rel Count 0.0 (0.00-0.2) % Eos # (Auto) 0.29 (0.04-0.54) x10^3/uL Immature Gran # (Auto) 0.02 (0.001-0.031) x10^3u/L Absolute Lymphs (auto) 2.41 (1.32-3.57) x10^3/uL Absolute Monos (auto) 1.20 H (0.30-0.82) x10^3/uL Absolute Nucleated RBC 0.00 (0.00-0.012) x10^3u/L Lymphocytes % 27.7 (21.8-53.1) % Monocytes % 13.8 H (5.3-12.2) % Eosinophils % 3.3 (0.8-7.0) % Basophils % 0.9 (0.2-1.2) % Absolute Granulocytes 4.71 (1.78-5.38) x10^3/uL Basophils # 0.08 (0.01-0.08) x10^3/uL Sodium 145 (135-145) mmol/L Potassium 4.3 (3.5-5.1) mmol/L Chloride 109 H (98-107) mmol/L Carbon Dioxide 27 (22-30) mmol/L Anion Gap 13.5 (5-15) MEQ/L BUN 21 H (9-20) mg/dL Creatinine 1.07 (0.66-1.25) mg/dL Estimated GFR 70.2 ML/MIN Glucose 147 H (74-106) mg/dL Hemoglobin A1c (4.5-6.0) % Calcium 9.3 (8.4-10.2) mg/dL Total Bilirubin 0.40 (0.2-1.3) mg/dL AST 22 (17-59) U/L ALT 23 (0-50) U/L Alkaline Phosphatase 84 (38-126) U/L Troponin I < 0.012 (0.000-0.033) ng/mL Serum Total Protein 7.7 (6.3-8.2) g/dL Albumin 4.4 (3.5-5.0) g/dL Triglycerides (30-150) mg/dL Cholesterol (50-200) mg/dL LDL Cholesterol (30-100) mg/dL HDL Cholesterol (40-60) mg/dL Heart Disease Risk Ratio TSH 3rd Generation (0.470-4.680) mIU/L Urine Color (Yellow) Urine Appearance (Clear) Urine pH (4.6-8.0) Ur Specific [place] (1.005-1.030) Urine Protein (Negative) Urine Glucose (UA) (Negative) mg/dL Urine Ketones (Negative) Urine Blood (Negative) Urine Nitrite (Negative) Urine Bilirubin (Negative) Urine Urobilinogen (0.2) mg/dL Ur Leukocyte Esterase (Negative) U Hyaline Cast (Auto) (0-2) /LPF Urine Microscopic RBC (0-5) /HPF Urine Microscopic WBC (0-5) /HPF Ur Epithelial Cells (None Seen) /HPF Urine Bacteria (None Seen) /HPF Urine Culture Reflexed (NO) 02/29/24 02/29/24 03/01/24 Range/Units 20:16 23:39 03:44 WBC (4.23-9.07) x10^3/uL RBC (4.63-6.08) x10^6/uL Hgb (13.7-17.5) g/dL Hct (40.1-51.0) % MCV (79.0-92.2) fL MCH (25.7-32.2) pg MCHC (32.3-36.5) g/dL RDW (11.6-14.4) % Plt Count (163-337) x10^3/uL MPV (9.4-12.4) fL Gran % (34.0-67.9) % Immature Gran % (Auto) (0.001-0.429) % Nucleat RBC Rel Count (0.00-0.2) % Eos # (Auto) (0.04-0.54) x10^3/uL Immature Gran # (Auto) (0.001-0.031) x10^3u/L Absolute Lymphs (auto) (1.32-3.57) x10^3/uL Absolute Monos (auto) (0.30-0.82) x10^3/uL Absolute Nucleated RBC (0.00-0.012) x10^3u/L Lymphocytes % (21.8-53.1) % Monocytes % (5.3-12.2) % Eosinophils % (0.8-7.0) % Basophils % (0.2-1.2) % Absolute Granulocytes (1.78-5.38) x10^3/uL Basophils # (0.01-0.08) x10^3/uL Sodium (135-145) mmol/L Potassium (3.5-5.1) mmol/L Chloride (98-107) mmol/L Carbon Dioxide (22-30) mmol/L Anion Gap (5-15) MEQ/L BUN (9-20) mg/dL Creatinine (0.66-1.25) mg/dL Estimated GFR ML/MIN Glucose (74-106) mg/dL Hemoglobin A1c (4.5-6.0) % Calcium (8.4-10.2) mg/dL Total Bilirubin (0.2-1.3) mg/dL AST (17-59) U/L ALT (0-50) U/L Alkaline Phosphatase (38-126) U/L Troponin I < 0.012 < 0.012 (0.000-0.033) ng/mL Serum Total Protein (6.3-8.2) g/dL Albumin (3.5-5.0) g/dL Triglycerides (30-150) mg/dL Cholesterol (50-200) mg/dL LDL Cholesterol (30-100) mg/dL HDL Cholesterol (40-60) mg/dL Heart Disease Risk Ratio TSH 3rd Generation (0.470-4.680) mIU/L Urine Color Yellow (Yellow) Urine Appearance Clear (Clear) Urine pH 5.5 (4.6-8.0) Ur Specific [place] 1.015 (1.005-1.030) Urine Protein Negative (Negative) Urine Glucose (UA) Negative (Negative) mg/dL Urine Ketones Negative (Negative) Urine Blood Negative (Negative) Urine Nitrite Negative (Negative) Urine Bilirubin Negative (Negative) Urine Urobilinogen 1.0 A (0.2) mg/dL Ur Leukocyte Esterase Negative (Negative) U Hyaline Cast (Auto) NONE SEEN (0-2) /LPF Urine Microscopic RBC 0-2 (0-5) /HPF Urine Microscopic WBC 0-2 (0-5) /HPF Ur Epithelial Cells None Seen (None Seen) /HPF Urine Bacteria None Seen (None Seen) /HPF Urine Culture Reflexed NO (NO) 03/01/24 03/01/24 03/01/24 Range/Units 03:44 03:44 03:44 WBC 8.3 (4.23-9.07) x10^3/uL RBC 4.35 L (4.63-6.08) x10^6/uL Hgb 13.3 L (13.7-17.5) g/dL Hct 39.8 L (40.1-51.0) % MCV 91.5 (79.0-92.2) fL MCH 30.6 (25.7-32.2) pg MCHC 33.4 (32.3-36.5) g/dL RDW 12.1 (11.6-14.4) % Plt Count 185 (163-337) x10^3/uL MPV 12.0 (9.4-12.4) fL Gran % (34.0-67.9) % Immature Gran % (Auto) (0.001-0.429) % Nucleat RBC Rel Count (0.00-0.2) % Eos # (Auto) (0.04-0.54) x10^3/uL Immature Gran # (Auto) (0.001-0.031) x10^3u/L Absolute Lymphs (auto) (1.32-3.57) x10^3/uL Absolute Monos (auto) (0.30-0.82) x10^3/uL Absolute Nucleated RBC (0.00-0.012) x10^3u/L Lymphocytes % (21.8-53.1) % Monocytes % (5.3-12.2) % Eosinophils % (0.8-7.0) % Basophils % (0.2-1.2) % Absolute Granulocytes (1.78-5.38) x10^3/uL Basophils # (0.01-0.08) x10^3/uL Sodium 143 (135-145) mmol/L Potassium 3.7 (3.5-5.1) mmol/L Chloride 111 H (98-107) mmol/L Carbon Dioxide 25 (22-30) mmol/L Anion Gap 11.4 (5-15) MEQ/L BUN 19 (9-20) mg/dL Creatinine 1.02 (0.66-1.25) mg/dL Estimated GFR 74.3 ML/MIN Glucose 98 (74-106) mg/dL Hemoglobin A1c 5.73 (4.5-6.0) % Calcium 8.8 (8.4-10.2) mg/dL Total Bilirubin (0.2-1.3) mg/dL AST (17-59) U/L ALT (0-50) U/L Alkaline Phosphatase (38-126) U/L Troponin I (0.000-0.033) ng/mL Serum Total Protein (6.3-8.2) g/dL Albumin (3.5-5.0) g/dL Triglycerides 172 H (30-150) mg/dL Cholesterol 112 (50-200) mg/dL LDL Cholesterol 76 (30-100) mg/dL HDL Cholesterol 31 L (40-60) mg/dL Heart Disease Risk Ratio 4.0 TSH 3rd Generation 2.277 (0.470-4.680) mIU/L Urine Color (Yellow) Urine Appearance (Clear) Urine pH (4.6-8.0) Ur Specific [place] (1.005-1.030) Urine Protein (Negative) Urine Glucose (UA) (Negative) mg/dL Urine Ketones (Negative) Urine Blood (Negative) Urine Nitrite (Negative) Urine Bilirubin (Negative) Urine Urobilinogen (0.2) mg/dL Ur Leukocyte Esterase (Negative) U Hyaline Cast (Auto) (0-2) /LPF Urine Microscopic RBC (0-5) /HPF Urine Microscopic WBC (0-5) /HPF Ur Epithelial Cells (None Seen) /HPF Urine Bacteria (None Seen) /HPF Urine Culture Reflexed (NO) - Radiology Orders Radiology Orders: Radiology Procedures Category Date Time Status ECHO W/2D AND DOPPLER [US] Routine Exams 03/01/24 21:19 Taken HEAD WITHOUT CONTRAST [CT] Stat Exams 02/29/24 19:31 Completed MRA BRAIN WITHOUT CONTRAST [MRI] Routine Exams 03/01/24 21:19 Completed MRA NECK WITHOUT CONTRAST [MRI] Routine Exams 03/01/24 21:19 Completed MRI BRAIN W/O CONTRAST [MRI] Routine Exams 03/01/24 21:19 Completed Impressions & Recommendations - ED Arrival Time ED Arrival Date & Time: ED Arrival Date and Time 02/29/24 18:47 Last known well time: - NIHSS IV Thrombolysis Standard of Care: IV thrombolysis as a standard of care in acute stroke discussed with KATHERINE GARRISON. Risk, benefits, and options of IV thrombolytic therapy for acute ischemic stroke were discussed with the patient/family RICHARD SCHNEIDER. We discussed that use of IV tenecteplase is in line with national stroke guidelines. We discussed that risks of IV thrombolytic use include intracranial hemorrhage, other fatal bleeding risks, and angioedema. Alternatives of treatment, including not proceeding with thrombolytic therapy were discussed. - Recommendations Recommendations: -Neuro checks, NIHSS, vital signs monitoring as per post tenecteplase protocol -Repeat non contrast head CT or noncontrast MRI brain 24 hours after IV thrombolyltic administration. -Obtain STAT non contrast head CT if there are new neurological deficits, worsening of current deficits, or with complaint of severe headache. Notify Neurology LAURA of changes in neurological exam. -Nicardipine gtt as needed to maintain BP< 180/105 x 24hr post tenecteplase administration. -Monitor for angioedema -SCD's for DVT prophylaxis. Work up: -Basic labs (CBC, BMP, TSH+T4) if not done already. -INR,PTT if not done already -Fasting Lipid Panel and Hgb A1c -Transthroacic echocardiogram [with bubble study] -EKG + Telemetry- monitor for A-FIB Secondary Stroke Prevention -Hold off on antiplatelet therapy x 24 hr post IV thrombolytic therapy Decision to initiate antiplatelet therapy, or anticoagulation if needed, will be based on repeat imaging at 24 hour post thrombolytic administration. -If not medical contraindication, start high intensity statin. Eg. Atrovastatin 80 mg daily Risk Factor Management -HTN control: BP <180/105 for first 24 hr post tenecteplase -If diabetic, optimize glucose control: senior care goal HgA1c <7 -HLD control: Long-term goal LDL <70. High intensity statin recommended. Moderate intensity statin in patients > 75 years. -Smoking Alcohol Use Drug use cessation counseling Stroke Rehabilitation: -Physical therapy, occupational therapy, speech therapy consults -Social work and case management consults for help with discharge needs. Impression and recommendation were discussed with Dr. KATHERINE GARRISON Thank you for allowing us to participate in this patient's care. Please call [facility] with questions, concerns, or change in patient's neurological status. This consult was performed via secure telemedicine audio/visual platform with [ ] RN assisting at bedside. Patient identity verified and consent obtained. TIQ recieved at [ ] Neuro Cart Time: Delays in Patient Encounter: Assessment & Plan (1) HTN (hypertension) Current Visit: Yes Status: Acute Code(s): I10 - ESSENTIAL (PRIMARY) HYPERTENSION (2) TIA (transient ischemic attack) Current Visit: Yes Status: Acute Assessment & Plan: plan - Frequent neuro-checks (q4h) - BP<130/80 - Baseline EKG and CXR - Basic labs: CBC, CMP, coagulation panel and troponin - Intravenous hydration with normal saline at 75cc per hour - NPO until speech eval - Head of bed > 30 degrees for aspiration prevention and aspiration precautions ordered. Stroke workup: -CTH:no acute process -MRA head and neck:no LVO, unremarkable -MRI:no acute infarct -Trans-thoracic echocardiogram -Continuous cardiac telemetry to monitor for arrhythmia -Stroke labwork: HgbA1C, lipid panel, urine drug screen Secondary prevention of stroke: -Aspirin 81mg daily and plavix 75mg daily for 21 days then plavix 75mg daily -Atorvastatin 40 mg daily (long-term goal LDL < 70) -Tight glucose control (long-term goal HgbA1c < 6%) -Stroke education and counseling Stroke rehabilitation: -Physical therapy, occupational therapy, speech therapy consults -Consulted social work and case management for help with discharge Other medical issues: HTN: diet: heart healthy ?Prophylaxis: SCDs (DVT), heparin 5000u q8h, famotidine, docusate (GI) Neurology follow up in 1-2 weeks Code(s): G45.9 - TRANSIENT CEREBRAL ISCHEMIC ATTACK, UNSPECIFIED - Encounter Encounter: "The entirety of this encounter was performed via Telemedicine using audio and visual " I i discussed with primary provider Tressa Boyer as detailed above, including reviewing relevant images and formulating care plan for this patient via telemedicine in the critical care evaluation of acute neurologic change.
--- NOTE | 2024-03-01 16:03 | PCM.DS ---
Discharge Summary Date of Admission: 02/29/24 21:09 Date of Discharge: 03/01/24 Admitting Physician: KATHY DEGROOT MD Primary Care Provider: BRISA FERGUSON Allergies Allergies No Known Drug Allergies Allergy (Unverified 02/29/24 19:55) Hospital Summary - Hospital Course Hospital Course: MR. Vickers is an 78 year old male with a pmhx of HTN admitted 02/29/24 with a TIA after experiencing stroke-like symptom of left arm numbness/disassociation. Symptoms resolved spontaneously in <1 hr. NIHSS 0 now. Seen by tele-neurology, recommended TIA workup. No other triggers, except possibly with this recent neck lymph node infection. No other obvious risk factors. Plan for MRI brain, MRA H/N today per neurololgy recommendations and Echo. CT head per radiology read is negative. Neuro read per documentation with small lacunar infarction, age indeterminant in the right frontal region. -MRA head and neck:no LVO, unremarkable. MRI:no acute infarct. Neurology recommendations for ASA/Plavix x 21 days, then plavix there after as well as lipitor 40mg. Patient to follow up with neurology as OP. Upon today's exam -Speech is clear with symmetrical facial expression. BUE/BLE strength 5/5 - equal. Sensation intact. No further episodes of left arm numbness/disassociation since prior to arrival. He denies headache, double vision, facial/extremity numbness/tingling, or any new symptoms. Patient agreeable to plan, cleared by neurology for discharge. Echo is pending and will need follow up with PCP for final read, advised follow up next week. Discharge Note New Diagnosis: TIA New Medications: Plavix/ASA lipitor Follow Up: Neurology/pcp Results pending: ECHO Latest Assessment & Plan (1) TIA (transient ischemic attack) Current Visit: Yes Status: Acute Assessment & Plan: -Neurology consulted, agree with plan for MRI/MRA/Echo, will reconsult if any abnormalities -TSH/LIpid performed -triglycerides elevated at 172, HDL at 31 -Atorvastatin 80mg initiated per neuro recs -ASA started per neuro recs 03/01: -neuro recs for ASA/plavix x 21 days, then plavix there after -lipitor 40mg daily -follow up with neurology/pcp -Echo pending will need to follow up op for final read Code(s): G45.9 - TRANSIENT CEREBRAL ISCHEMIC ATTACK, UNSPECIFIED (2) HTN (hypertension) Current Visit: Yes Status: Acute Assessment & Plan: -stable continue home meds Code(s): I10 - ESSENTIAL (PRIMARY) HYPERTENSION (3) Neck infection Current Visit: Yes Status: Acute Assessment & Plan: currently on day 2 of 10 of course of Keflex as outpatient for a swollen lymph node in his neck. Appears to be improving, no swelling noted today. - continue Keflex QID Code(s): L08.9 - LOCAL INFECTION OF THE SKIN AND SUBCUTANEOUS TISSUE, UNSP (4) GERD (gastroesophageal reflux disease) Current Visit: Yes Status: Acute Assessment & Plan: -continue protonix Code status: full Diet : regular Dispo 1-2 days I spent 35 minutes [id number] with the patient on the day of discharge performing discharge exam, discussing hospital stay and discharge instructions with patient and caregivers, preparation of discharge records, prescriptions & referral forms and addressing any questions/concerns the patient had as documented above. - Vitals & Intake/Output Vital Signs: Vital Signs Temperature 98.2 F 03/01/24 12:00 Pulse Rate 45 L 03/01/24 12:00 Respiratory Rate 17 03/01/24 12:00 Blood Pressure 131/60 03/01/24 12:00 O2 Sat by Pulse Oximetry 96 03/01/24 12:00 Intake & Output: Intake & Output 02/28/24 02/29/24 03/01/24 03/02/24 11:59 11:59 11:59 11:59 Intake Total 1206 380 Balance 1206 380 Weight 87.1 kg - Lab Result Diagrams: 03/01/24 03:44 03/01/24 03:44 Lab Results-Last 24 Hrs: Lab Results-Last 24 Hours 02/29/24 02/29/24 02/29/24 Range/Units 19:40 19:40 19:40 WBC 8.7 (4.23-9.07) x10^3/uL RBC 4.77 (4.63-6.08) x10^6/uL Hgb 14.6 (13.7-17.5) g/dL Hct 43.4 (40.1-51.0) % MCV 91.0 (79.0-92.2) fL MCH 30.6 (25.7-32.2) pg MCHC 33.6 (32.3-36.5) g/dL RDW 12.2 (11.6-14.4) % Plt Count 204 (163-337) x10^3/uL MPV 12.3 (9.4-12.4) fL Gran % 54.1 (34.0-67.9) % Immature Gran % (Auto) 0.2 (0.001-0.429) % Nucleat RBC Rel Count 0.0 (0.00-0.2) % Eos # (Auto) 0.29 (0.04-0.54) x10^3/uL Immature Gran # (Auto) 0.02 (0.001-0.031) x10^3u/L Absolute Lymphs (auto) 2.41 (1.32-3.57) x10^3/uL Absolute Monos (auto) 1.20 H (0.30-0.82) x10^3/uL Absolute Nucleated RBC 0.00 (0.00-0.012) x10^3u/L Lymphocytes % 27.7 (21.8-53.1) % Monocytes % 13.8 H (5.3-12.2) % Eosinophils % 3.3 (0.8-7.0) % Basophils % 0.9 (0.2-1.2) % Absolute Granulocytes 4.71 (1.78-5.38) x10^3/uL Basophils # 0.08 (0.01-0.08) x10^3/uL Sodium 145 (135-145) mmol/L Potassium 4.3 (3.5-5.1) mmol/L Chloride 109 H (98-107) mmol/L Carbon Dioxide 27 (22-30) mmol/L Anion Gap 13.5 (5-15) MEQ/L BUN 21 H (9-20) mg/dL Creatinine 1.07 (0.66-1.25) mg/dL Estimated GFR 70.2 ML/MIN Glucose 147 H (74-106) mg/dL Hemoglobin A1c (4.5-6.0) % Calcium 9.3 (8.4-10.2) mg/dL Total Bilirubin 0.40 (0.2-1.3) mg/dL AST 22 (17-59) U/L ALT 23 (0-50) U/L Alkaline Phosphatase 84 (38-126) U/L Troponin I < 0.012 (0.000-0.033) ng/mL Serum Total Protein 7.7 (6.3-8.2) g/dL Albumin 4.4 (3.5-5.0) g/dL Triglycerides (30-150) mg/dL Cholesterol (50-200) mg/dL LDL Cholesterol (30-100) mg/dL HDL Cholesterol (40-60) mg/dL Heart Disease Risk Ratio TSH 3rd Generation (0.470-4.680) mIU/L Urine Color (Yellow) Urine Appearance (Clear) Urine pH (4.6-8.0) Ur Specific [place] (1.005-1.030) Urine Protein (Negative) Urine Glucose (UA) (Negative) mg/dL Urine Ketones (Negative) Urine Blood (Negative) Urine Nitrite (Negative) Urine Bilirubin (Negative) Urine Urobilinogen (0.2) mg/dL Ur Leukocyte Esterase (Negative) U Hyaline Cast (Auto) (0-2) /LPF Urine Microscopic RBC (0-5) /HPF Urine Microscopic WBC (0-5) /HPF Ur Epithelial Cells (None Seen) /HPF Urine Bacteria (None Seen) /HPF Urine Culture Reflexed (NO) 02/29/24 02/29/24 03/01/24 Range/Units 20:16 23:39 03:44 WBC (4.23-9.07) x10^3/uL RBC (4.63-6.08) x10^6/uL Hgb (13.7-17.5) g/dL Hct (40.1-51.0) % MCV (79.0-92.2) fL MCH (25.7-32.2) pg MCHC (32.3-36.5) g/dL RDW (11.6-14.4) % Plt Count (163-337) x10^3/uL MPV (9.4-12.4) fL Gran % (34.0-67.9) % Immature Gran % (Auto) (0.001-0.429) % Nucleat RBC Rel Count (0.00-0.2) % Eos # (Auto) (0.04-0.54) x10^3/uL Immature Gran # (Auto) (0.001-0.031) x10^3u/L Absolute Lymphs (auto) (1.32-3.57) x10^3/uL Absolute Monos (auto) (0.30-0.82) x10^3/uL Absolute Nucleated RBC (0.00-0.012) x10^3u/L Lymphocytes % (21.8-53.1) % Monocytes % (5.3-12.2) % Eosinophils % (0.8-7.0) % Basophils % (0.2-1.2) % Absolute Granulocytes (1.78-5.38) x10^3/uL Basophils # (0.01-0.08) x10^3/uL Sodium (135-145) mmol/L Potassium (3.5-5.1) mmol/L Chloride (98-107) mmol/L Carbon Dioxide (22-30) mmol/L Anion Gap (5-15) MEQ/L BUN (9-20) mg/dL Creatinine (0.66-1.25) mg/dL Estimated GFR ML/MIN Glucose (74-106) mg/dL Hemoglobin A1c (4.5-6.0) % Calcium (8.4-10.2) mg/dL Total Bilirubin (0.2-1.3) mg/dL AST (17-59) U/L ALT (0-50) U/L Alkaline Phosphatase (38-126) U/L Troponin I < 0.012 < 0.012 (0.000-0.033) ng/mL Serum Total Protein (6.3-8.2) g/dL Albumin (3.5-5.0) g/dL Triglycerides (30-150) mg/dL Cholesterol (50-200) mg/dL LDL Cholesterol (30-100) mg/dL HDL Cholesterol (40-60) mg/dL Heart Disease Risk Ratio TSH 3rd Generation (0.470-4.680) mIU/L Urine Color Yellow (Yellow) Urine Appearance Clear (Clear) Urine pH 5.5 (4.6-8.0) Ur Specific [place] 1.015 (1.005-1.030) Urine Protein Negative (Negative) Urine Glucose (UA) Negative (Negative) mg/dL Urine Ketones Negative (Negative) Urine Blood Negative (Negative) Urine Nitrite Negative (Negative) Urine Bilirubin Negative (Negative) Urine Urobilinogen 1.0 A (0.2) mg/dL Ur Leukocyte Esterase Negative (Negative) U Hyaline Cast (Auto) NONE SEEN (0-2) /LPF Urine Microscopic RBC 0-2 (0-5) /HPF Urine Microscopic WBC 0-2 (0-5) /HPF Ur Epithelial Cells None Seen (None Seen) /HPF Urine Bacteria None Seen (None Seen) /HPF Urine Culture Reflexed NO (NO) 03/01/24 03/01/24 03/01/24 Range/Units 03:44 03:44 03:44 WBC 8.3 (4.23-9.07) x10^3/uL RBC 4.35 L (4.63-6.08) x10^6/uL Hgb 13.3 L (13.7-17.5) g/dL Hct 39.8 L (40.1-51.0) % MCV 91.5 (79.0-92.2) fL MCH 30.6 (25.7-32.2) pg MCHC 33.4 (32.3-36.5) g/dL RDW 12.1 (11.6-14.4) % Plt Count 185 (163-337) x10^3/uL MPV 12.0 (9.4-12.4) fL Gran % (34.0-67.9) % Immature Gran % (Auto) (0.001-0.429) % Nucleat RBC Rel Count (0.00-0.2) % Eos # (Auto) (0.04-0.54) x10^3/uL Immature Gran # (Auto) (0.001-0.031) x10^3u/L Absolute Lymphs (auto) (1.32-3.57) x10^3/uL Absolute Monos (auto) (0.30-0.82) x10^3/uL Absolute Nucleated RBC (0.00-0.012) x10^3u/L Lymphocytes % (21.8-53.1) % Monocytes % (5.3-12.2) % Eosinophils % (0.8-7.0) % Basophils % (0.2-1.2) % Absolute Granulocytes (1.78-5.38) x10^3/uL Basophils # (0.01-0.08) x10^3/uL Sodium 143 (135-145) mmol/L Potassium 3.7 (3.5-5.1) mmol/L Chloride 111 H (98-107) mmol/L Carbon Dioxide 25 (22-30) mmol/L Anion Gap 11.4 (5-15) MEQ/L BUN 19 (9-20) mg/dL Creatinine 1.02 (0.66-1.25) mg/dL Estimated GFR 74.3 ML/MIN Glucose 98 (74-106) mg/dL Hemoglobin A1c 5.73 (4.5-6.0) % Calcium 8.8 (8.4-10.2) mg/dL Total Bilirubin (0.2-1.3) mg/dL AST (17-59) U/L ALT (0-50) U/L Alkaline Phosphatase (38-126) U/L Troponin I (0.000-0.033) ng/mL Serum Total Protein (6.3-8.2) g/dL Albumin (3.5-5.0) g/dL Triglycerides 172 H (30-150) mg/dL Cholesterol 112 (50-200) mg/dL LDL Cholesterol 76 (30-100) mg/dL HDL Cholesterol 31 L (40-60) mg/dL Heart Disease Risk Ratio 4.0 TSH 3rd Generation 2.277 (0.470-4.680) mIU/L Urine Color (Yellow) Urine Appearance (Clear) Urine pH (4.6-8.0) Ur Specific [place] (1.005-1.030) Urine Protein (Negative) Urine Glucose (UA) (Negative) mg/dL Urine Ketones (Negative) Urine Blood (Negative) Urine Nitrite (Negative) Urine Bilirubin (Negative) Urine Urobilinogen (0.2) mg/dL Ur Leukocyte Esterase (Negative) U Hyaline Cast (Auto) (0-2) /LPF Urine Microscopic RBC (0-5) /HPF Urine Microscopic WBC (0-5) /HPF Ur Epithelial Cells (None Seen) /HPF Urine Bacteria (None Seen) /HPF Urine Culture Reflexed (NO) - Radiology Exams Ordered Rad Exams-Entire Visit: Radiology Procedures Category Date Time Status ECHO W/2D AND DOPPLER [US] Routine Exams 03/01/24 21:19 Taken HEAD WITHOUT CONTRAST [CT] Stat Exams 02/29/24 19:31 Completed MRA BRAIN WITHOUT CONTRAST [MRI] Routine Exams 03/01/24 21:19 Completed MRA NECK WITHOUT CONTRAST [MRI] Routine Exams 03/01/24 21:19 Completed MRI BRAIN W/O CONTRAST [MRI] Routine Exams 03/01/24 21:19 Completed Discharge Exam General Appearance: no apparent distress Neurologic Exam: alert, oriented x 3, cooperative, adobe layer helper II-XII nml as tested, normal mood/affect Eye Exam: PERRL Ears, Nose, Throat Exam: normal ENT inspection Neck Exam: normal inspection Respiratory Exam: normal breath sounds, lungs clear Cardiovascular Exam: regular rate/rhythm Gastrointestinal/Abdomen Exam: soft, normal bowel sounds Male Genitalia Exam: deferred Rectal Exam: deferred Back Exam: normal inspection Extremity Exam: normal inspection Skin Exam: normal color Final Diagnosis/Problem List - Final Discharge Diagnosis/Problem (1) TIA (transient ischemic attack) Current Visit: Yes Status: Acute Code(s): G45.9 - TRANSIENT CEREBRAL ISCHEMIC ATTACK, UNSPECIFIED (2) HTN (hypertension) Current Visit: Yes Status: Chronic Code(s): I10 - ESSENTIAL (PRIMARY) HYPERTENSION (3) Neck infection Current Visit: Yes Status: Acute Code(s): L08.9 - LOCAL INFECTION OF THE SKIN AND SUBCUTANEOUS TISSUE, UNSP (4) GERD (gastroesophageal reflux disease) Current Visit: Yes Status: Chronic Code(s): K21.9 - GASTRO-ESOPHAGEAL REFLUX DISEASE WITHOUT ESOPHAGITIS - Discharge Disposition: Home, Self-Care Condition: Stable Prescriptions: New Aspirin EC 81 mg [Ecotrin 81 mg] 81 mg PO DAILY 21 Days #21 tablet Atorvastatin Calcium [Lipitor 40Mg] 40 mg PO DAILY 30 Days #30 tablet Clopidogrel Bisulfate [PLAVIX Tablet] 75 mg PO DAILY 30 Days #30 tablet Continue Metoprolol Succinate 50 mg [Toprol Xl 50 MG] 1 tab PO HS Pravastatin Sodium 20 mg PO HS PANTOPRAZOLE 40 mg Tablet [Protonix 40MG Tablet] 1 tab PO DAILY Losartan/Hydrochlorothiazide [Losartan-Hctz 100-25 mg Tab] 1 tab PO DAILY Cephalexin Mh 500 mg [Keflex 500 mg] 1 tab PO QID Instructions: Stroke, Aspirin, Clopidogrel Follow up with: BRISA FERGUSON MD [Primary Care Provider] - 03/09/24 2:00 pm ([place] office ) MELISSA MARSHALL, [NON-STAFF PHY W/O PRIVILEGES] -
[2024-03-01] MEDS: PLAVIX Tablet PO SCH (16:05)
[2024-03-01 16:07] VITALS: BP 145/62; PULSE 46; RESP 16; TEMP 97.9; O2SAT 94
[2024-03-01] MEDS ORDERED: ZOCOR 20MG PO SCH (22:00)
[2024-03-02] MEDS ORDERED: LIPITOR 40MG PO SCH (10:00)
== END 2024-03-01 17:05 | disposition home or self-care (01) ==
LOC: ED 18:47 → MED SURG 21:09
PROVIDERS: ADMIT Internal Medicine; ATTEND Internal Medicine
DX: G45.9 Transient cerebral ischemic attack, unspecified (principal); I10 Essential (primary) hypertension; L08.9 Local infection of the skin and subcutaneous tissue, unspecified; K21.9 Gastro-esophageal reflux disease without esophagitis; E78.5 Hyperlipidemia, unspecified; Z79.899 Other long term (current) drug therapy
CPT/HCPCS: 36000; 36415; 70450; 70544; 70547; 70551; 80048; 80053; 80061; 81001; 83036; 83721; 84443; 84484; 85025; 85027; 93005; 93041; 93268; 93306; 94760; 99285; G0378; Q3014; A9270-GY